=== PATIENT | male | born 1955 | race Caucasian/White ===

== ENCOUNTER 2017-08-11 07:44 | Outpatient (CLI) | payer OTHER | END 2017-08-11 08:30 | disposition home or self-care (01) | LOC: NUCLEAR 07:44 | DX: I25.10 Atherosclerotic heart disease of native coronary artery without angina pectoris (principal); R07.89 Other chest pain; E11.9 Type 2 diabetes mellitus without complications | CPT/HCPCS: 78452; 93017; A9500 ==

== ENCOUNTER 2019-04-24 07:15 | Outpatient (CLI) | payer OTHER | END 2019-04-24 07:24 | disposition home or self-care (01) | LOC: NUCLEAR 07:15 | DX: I25.10 Atherosclerotic heart disease of native coronary artery without angina pectoris (principal); E11.9 Type 2 diabetes mellitus without complications; E78.00 Pure hypercholesterolemia, unspecified; I34.0 Nonrheumatic mitral (valve) insufficiency | CPT/HCPCS: 78452; 93017; A9500 ==